=== PATIENT | male | born 1970 | race Two or more races ===

== ENCOUNTER 2022-07-18 08:34 | Day surgery (SDC) | payer OTHER | END 2022-07-18 12:15 | disposition home or self-care (01) | LOC: AMB-ENDOS 08:34 → CIR.AMB 14:15 | PROVIDERS: ATTEND Surgery | DX: C18.4 Malignant neoplasm of transverse colon (principal); Z20.822 Contact with and (suspected) exposure to COVID-19; K57.30 Diverticulosis of large intestine without perforation or abscess without bleeding ==